=== PATIENT | male | born 1980 | race Two or more races ===

== ENCOUNTER 2018-03-04 11:05 | Emergency (ER) | payer SELFPAY ==
[2018-03-04 11:50] LABS: ADD MAN DIFF? NO
[2018-03-04 11:51] LABS: BASO # 0.1 x10^3/uL (0.0-0.2); BASO % 2 % (0-3); EOS # 0.4 x10^3/uL (0.0-0.7); EOS % 6 % (0-3); HEMATOCRIT 46.6 % (39.0-53.0); HEMOGLOBIN 16.4 g/dL (13.0-17.5); LYMPH # 2.8 x10^3/uL (1.0-4.8); LYMPH % 51 % (24-48); MEAN CORPUSCULAR HEMOGLOBIN 34 pg (25-35); MEAN CORPUSCULAR HGB CONC 35 g/dL (31-37); MEAN CORPUSCULAR VOLUME 96 fL (79-100); MONO # 0.5 x10^3/uL (0.0-1.1); MONO % 8 % (0-9); NEUT # 1.8 x10^3uL (1.8-7.7); NEUT % 32 % (31-73); PLATELET COUNT 190 x10^3/uL (140-400); RED BLOOD COUNT 4.86 x10^6/uL (4.30-5.70); RED CELL DISTRIBUTION WIDTH 13.1 % (11.5-14.5); WHITE BLOOD COUNT 5.5 x10^3/uL (4.0-11.0)
[2018-03-04] MEDS: ASPIRIN CHEWABLE 81 MG TABLET. PO (11:56)
[2018-03-04 12:00] LABS: INR 1.1 (0.8-1.1); PROTHROMBIN TIME PATIENT 13.8 SEC (11.7-14.0)
[2018-03-04 12:02] LABS: ANION GAP 14 (6-14); BLOOD UREA NITROGEN 5 mg/dL (8-26); BUN/CREATININE RATIO 8 (6-20); CALCIUM 8.7 mg/dL (8.5-10.1); CARBON DIOXIDE 25 mmol/L (21-32); CHLORIDE 102 mmol/L (98-107); CREATININE 0.6 mg/dL (0.7-1.3); GFR 152.4; GLUCOSE 101 mg/dL (70-99); POTASSIUM 4.1 mmol/L (3.5-5.1); SODIUM 141 mmol/L (136-145)
[2018-03-04 12:08] LABS: ALK PHOS 68 U/L (46-116); ALT (SGPT) 36 U/L (16-63); AST (SGOT) 33 U/L (15-37); CREATINE KINASE 266 U/L (39-308); D-DIMER 0.36 ug/mlFEU (0.00-0.50); LIPASE 166 U/L (73-393); TOTAL BILIRUBIN 0.8 mg/dL (0.2-1.0); TOTAL PROTEIN 7.9 g/dL (6.4-8.2)
[2018-03-04 12:09] LABS: TROPONINI < 0.017 ng/mL (0.000-0.055)
[2018-03-04 12:17] LABS: NT-PRO BNP 11 pg/mL (0-124)
[2018-03-04 12:17] LABS: CKMB INDEX 0.6 % (0-4); CKMB MASS 1.7 ng/mL (0.0-3.6); CREATINE KINASE 271 U/L (39-308)
== END 2018-03-04 13:00 | disposition home or self-care (01) ==
LOC: ER 11:05
DX: F41.9 Anxiety disorder, unspecified (principal); F10.20 Alcohol dependence, uncomplicated
CPT/HCPCS: 36415; 71045; 80053; 82550; 82553; 83690; 83735; 83880; 84484; 85025; 85379; 85610; 93005; 96374; 99285-25; J2060

== ENCOUNTER 2019-05-22 13:37 | Emergency (ER) | payer SELFPAY ==
[~2019-05-22] VITALS: Ht 182.9 cm; Wt 108.9 kg
[~2019-05-22 13:37] MED LIST: NAPR-683 PO
[2019-05-22] MEDS ORDERED: METOCLOPRAMIDE HCL 10 MG/2 ML VIAL. IV ONE (14:00)
[2019-05-22] MEDS ORDERED: IV NORMAL SALINE 1000ML BAG 1,000 ML IV ONE ×2 (14:00→16:30)
--- NOTE | 2019-05-22 14:00 | PHYS DOC ---
Past Medical History Past Medical History: No Pertinent History Past Surgical History: Other Additional Past Surgical Histo: right index finger Alcohol Use: Heavy Drug Use: None Adult General Chief Complaint Chief Complaint: CHEST PAIN HPI HPI Patient is a 38 year old male presented to ER today for evaluation of epigastric this abdominal pain, chest pain started for several day. he said he is in alcohol withdrawal. He said he had been drinking heavily for the last 5 days, his last drink was last night. he denies any suicidal ideation, denies homicidal ideation. he had no previous medical problem, he had no history of heart problem. He is currently not taking any medication. Review of Systems Review of Systems Constitutional: Denies fever or chills [] Eyes: Denies change in visual acuity, redness, or eye pain [] HENT: Denies nasal congestion or sore throat [] Respiratory: Denies cough or shortness of breath [] Cardiovascular: No additional information not addressed in HPI [] GI: Positive for epigastric abdominal pain, NO nausea, vomiting, bloody stools or diarrhea [] : Denies dysuria or hematuria [] Musculoskeletal: Denies back pain or joint pain [] Integument: Denies rash or skin lesions [] Neurologic: Denies headache, focal weakness or sensory changes [] Endocrine: Denies polyuria or polydipsia [] All other systems were reviewed and found to be within normal limits, except as documented in this note. Current Medications Current Medications Current Medications Medications (Trade) Dose Ordered Sig/Gladis Start Time Stop Time Status Last Admin Dose Admin Chlordiazepoxide (Librium) 25 mg 1X ONCE 05/22/19 15:30 05/22/19 15:31 DC 05/22/19 15:32 25 MG Famotidine (Pepcid Vial) 20 mg 1X ONCE 05/22/19 16:00 05/22/19 16:01 DC 05/22/19 16:09 20 MG Lorazepam (Ativan Inj) 1 mg 1X ONCE 05/22/19 14:00 05/22/19 14:01 DC 05/22/19 14:09 1 MG Magnesium Sulfate 50 ml @ 25 mls/hr 1X ONCE 05/22/19 15:30 05/22/19 17:29 05/22/19 15:32 25 MLS/HR Metoclopramide HCl (Reglan Vial) 10 mg 1X ONCE 05/22/19 14:00 8/3/19 14:01 DC 05/22/19 14:10 10 MG Multi-Ingredient Mouthwash/Gargle (Gi Cocktail) 20 ml 1X ONCE 05/22/19 16:00 05/22/19 16:01 DC 05/22/19 16:09 20 ML Sodium Chloride 1,000 ml @ 1,000 mls/hr 1X ONCE 05/22/19 16:30 05/22/19 17:29 Allergies Allergies Allergies Coded Allergies Type Severity Reaction Last Updated Verified No Known Drug Allergies 03/04/18 No Physical Exam Physical Exam Constitutional: Well developed, well nourished, no acute distress, non-toxic appearance. [] HENT: Normocephalic, atraumatic, bilateral external ears normal, oropharynx moist, no oral exudates, nose normal. [] Eyes: PERRLA, EOMI, conjunctiva normal, no discharge. [] Neck: Normal range of motion, no tenderness, supple, no stridor. [] Cardiovascular:Heart rate regular rhythm, no murmur [] Lungs & Thorax: Bilateral breath sounds clear to auscultation [] Abdomen: Bowel sounds normal, soft, no tenderness, no masses, no pulsatile masses. [] Skin: Warm, dry, no erythema, no rash. [] Back: No tenderness, no CVA tenderness. [] Extremities: No tenderness, no cyanosis, no clubbing, ROM intact, no edema. [] Neurologic: Alert and oriented X 3, normal motor function, normal sensory function, no focal deficits noted. [] Psychologic: Affect normal, judgement normal, mood normal. [] Current Patient Data Vital Signs Vital Signs Date Time Temp Pulse Resp B/P (MAP) Pulse Ox O2 Delivery O2 Flow Rate FiO2 05/22/19 15:28 96 18 147/89 (108) 96 Room Air 05/22/19 13:40 99.0 99.0 Lab Values Laboratory Tests Test 05/22/19 13:52 05/22/19 16:11 White Blood Count 4.8 x10^3/uL (4.0-11.0) Red Blood Count 4.95 x10^6/uL (4.30-5.70) Hemoglobin 15.9 g/dL (13.0-17.5) Hematocrit 44.8 % (39.0-53.0) Mean Corpuscular Volume 91 fL (79-100) Mean Corpuscular Hemoglobin 32 pg (25-35) Mean Corpuscular Hemoglobin Concent 36 g/dL (31-37) Red Cell Distribution Width 13.9 % (11.5-14.5) Platelet Count 267 x10^3/uL (140-400) Neutrophils (%) (Auto) 74 % (31-73) H Lymphocytes (%) (Auto) 15 % (24-48) L Monocytes (%) (Auto) 10 % (0-9) H Eosinophils (%) (Auto) 0 % (0-3) Basophils (%) (Auto) 1 % (0-3) Neutrophils # (Auto) 3.6 x10^3/uL (1.8-7.7) Lymphocytes # (Auto) 0.7 x10^3/uL (1.0-4.8) L Monocytes # (Auto) 0.5 x10^3/uL (0.0-1.1) Eosinophils # (Auto) 0.0 x10^3/uL (0.0-0.7) Basophils # (Auto) 0.0 x10^3/uL (0.0-0.2) Prothrombin Time 13.2 SEC (11.7-14.0) Prothrombin Time INR 1.0 (0.8-1.1) Sodium Level 134 mmol/L (136-145) L Potassium Level 4.0 mmol/L (3.5-5.1) Chloride Level 95 mmol/L (98-107) L Carbon Dioxide Level 21 mmol/L (21-32) Anion Gap 18 (6-14) H Blood Urea Nitrogen 5 mg/dL (8-26) L Creatinine 0.9 mg/dL (0.7-1.3) Estimated GFR (Cockcroft-Gault) 95.0 Glucose Level 180 mg/dL (70-99) H Calcium Level 9.1 mg/dL (8.5-10.1) Magnesium Level 1.5 mg/dL (1.8-2.4) L Creatine Kinase 272 U/L (39-308) Troponin I Quantitative < 0.017 ng/mL (0.000-0.055) RS-Ibn-V-Type Natriuretic Peptide 8 pg/mL (0-124) Lipase 167 U/L (73-393) Salicylates Level < 2.8 mg/dL (2.8-20.0) L Salicylate Last Dose Date Unknown Salicylate Last Dose Time Unknown Acetaminophen Level < 2 mcg/ml (10-30) L Acetaminophen Last Dose Date Unknown Acetaminophen Last Dose Time Unknown Ethyl Alcohol Level 19 mg/dL (0-10) H Urine Collection Type Unknown Urine Color Yellow Urine Clarity Clear Urine pH 7.5 Urine Specific [place] 1.010 Urine Protein Negative mg/dL (NEG-TRACE) Urine Glucose (UA) Negative mg/dL (NEG) Urine Ketones (Stick) 40 mg/dL (NEG) Urine Blood Trace (NEG) Urine Nitrite Negative (NEG) Urine Bilirubin Negative (NEG) Urine Urobilinogen Dipstick 1.0 mg/dL (0.2 mg/dL) Urine Leukocyte Esterase Negative (NEG) Urine RBC 3-5 /HPF (0-2) Urine WBC 0 /HPF (0-4) Urine Squamous Epithelial Cells Few /LPF Urine Bacteria 0 /HPF (0-FEW) Urine Hyaline Casts Moderate /HPF Urine Mucus Slight /LPF Urine Opiates Screen Neg (NEG) Urine Methadone Screen Neg (NEG) Urine Barbiturates Neg (NEG) Urine Phencyclidine Screen Neg (NEG) Urine Amphetamine/Methamphetamine Neg (NEG) Urine Benzodiazepines Screen Neg (NEG) Urine Cocaine Screen Neg (NEG) Urine Cannabinoids Screen Neg (NEG) Urine Ethyl Alcohol Pos (NEG) Laboratory Tests 05/22/19 13:52 Laboratory Tests 05/22/19 13:52 EKG EKG EKG WAS DONE AT 1346, RATE OF 100 BPM, NO STEMI. Radiology/Procedures Radiology/Procedures [][facility] [address] [place] [address] IMAGING REPORT Signed PATIENT: MIKE HARTMAN ACCOUNT: [id number] : 1980 LOCATION: ER AGE: 38 SEX: M EXAM STATUS: PRE ER ORD. PHYSICIAN: MAXIM ESPAÑA DO REASON: chest pain, SOA x1 day PROCEDURE: PORTABLE CHEST 1V Chest radiograph 05/22/2019 1:45 PM INDICATION: Chest pain, shortness of breath COMPARISON: March 04, 2018 TECHNIQUE: Frontal view of the chest is provided. FINDINGS: The cardiomediastinal silhouette is within normal limits. There are no pleural effusions. There is no pulmonary vascular congestion. There is no pneumothorax. The lungs are clear. No significant osseous abnormality is identified. IMPRESSION: No acute cardiopulmonary process. Electronically signed by: Shabbir Canela MD (05/22/2019 2:21 PM) [facility] DICTATED and SIGNED BY: SHABBIR CANELA MD DATE: 05/22/19 142 Course & Med Decision Making Course & Med Decision Making Pertinent Labs and Imaging studies reviewed. (See chart for details) [] Dragon Disclaimer Dragon Disclaimer This electronic medical record was generated, in whole or in part, using a voice recognition dictation system. Departure Departure Impression: Primary Impression: Acute gastritis Additional Impression: Alcohol abuse Disposition: HOME, SELF-CARE Condition: IMPROVED Referrals: NO PCP (PCP) FOLLOW UP WITH YOUR FAMILY DOCTOR FOR REEVALUATION ON FRIDAY Patient Instructions: Alcohol Problems, Gastritis, Adult Scripts Chlordiazepoxide Hcl (CHLORDIAZEPOXIDE HCL) 25 Mg Capsule 25 MG PO QID PRN for ANXIETY / AGITATION for 7 Days, #30 CAP Prov: MAXIM ESPAÑA DO 05/22/19 Famotidine (PEPCID) 20 Mg Tablet 20 MG PO BID for 30 Days, #60 TAB Prov: MAXIM ESPAÑA DO 05/22/19 Sucralfate (CARAFATE) 1 Gm Tablet 1 TAB PO QID for 14 Days, #56 TAB 1 Refill Prov: MAXIM ESPAÑA DO 05/22/19 Problem Qualifiers MAXIM ESPAÑA DO May 22, 2019 14:00
[2019-05-22 14:10] LABS: BASO % 1 % (0-3); EOS % 0 % (0-3); HEMATOCRIT 44.8 % (39.0-53.0); HEMOGLOBIN 15.9 g/dL (13.0-17.5); LYMPH # 0.7 x10^3/uL (1.0-4.8); LYMPH % 15 % (24-48); MEAN CORPUSCULAR HEMOGLOBIN 32 pg (25-35); MEAN CORPUSCULAR HGB CONC 36 g/dL (31-37); MEAN CORPUSCULAR VOLUME 91 fL (79-100); MONO # 0.5 x10^3/uL (0.0-1.1); MONO % 10 % (0-9); NEUT # 3.6 x10^3/uL (1.8-7.7); NEUT % 74 % (31-73); PLATELET COUNT 267 x10^3/uL (140-400); RED BLOOD COUNT 4.95 x10^6/uL (4.30-5.70); RED CELL DISTRIBUTION WIDTH 13.9 % (11.5-14.5); WHITE BLOOD COUNT 4.8 x10^3/uL (4.0-11.0)
[2019-05-22 14:19] LABS: PROTHROMBIN TIME PATIENT 13.2 SEC (11.7-14.0)
--- NOTE | 2019-05-22 14:24 | RAD ---
Chest radiograph 05/22/2019 1:45 PM INDICATION: Chest pain, shortness of breath COMPARISON: March 04, 2018 TECHNIQUE: Frontal view of the chest is provided. FINDINGS: The cardiomediastinal silhouette is within normal limits. There are no pleural effusions. There is no pulmonary vascular congestion. There is no pneumothorax. The lungs are clear. No significant osseous abnormality is identified. IMPRESSION: No acute cardiopulmonary process. Electronically signed by: Lilibeth Garland MD (05/22/2019 2:21 PM) [facility]
[2019-05-22 14:27] LABS: CALCIUM 9.1 mg/dL (8.5-10.1); CREATININE 0.9 mg/dL (0.7-1.3)
[2019-05-22 14:30] LABS: ACETAMIN < 2 mcg/ml (10-30); SALIC < 2.8 mg/dL (2.8-20.0)
[2019-05-22 14:32] LABS: MAGNESIUM 1.5 mg/dL (1.8-2.4)
[2019-05-22] MEDS ORDERED: MAGNESIUM SULFATE 2GM 50 ML IV ONE (15:30)
[2019-05-22] MEDS ORDERED: chlordiazePOXIDE HCL 25 MG CAPSULE PO ONE (15:30)
[2019-05-22] MEDS ORDERED: LIDO:MAALOX 1:1 20 ML SINGLE DOSE. SWSW ONE (16:00)
[2019-05-22] MEDS ORDERED: FAMOTIDINE 20 MG/2 ML VIAL IVP ONE (16:00)
[2019-05-22 16:19] LABS: BILIRUBIN,URINE NEGATIVE (NEG); CLARITY,URINE CLEAR; COLOR,URINE YELLOW; NITRITE,URINE NEGATIVE (NEG); PH,URINE 7.5; PROTEIN,URINE NEGATIVE (NEG-TRACE)
[2019-05-22 16:25] LABS: HYALINE CASTS, URINE MODERATE /HPF; SQUAMOUS EPITHELIAL CELL,UR FEW /LPF
[2019-05-22 16:26] LABS: AMPHETAMINE/METHAMPHETAMINE NEG (NEG); BACTERIA,URINE 0 /HPF (0-FEW); BARBITURATES NEG (NEG); BENZODIAZEPINES NEG (NEG); CANNABINOIDS NEG (NEG); COCAINE NEG (NEG); METHADONE NEG (NEG); OPIATES NEG (NEG); PHENCYCLIDINE NEG (NEG); WBC,URINE 0 /HPF (0-4)
[2019-05-22] MEDS ORDERED: FAMO-63 PO (17:07)
[2019-05-22] MEDS ORDERED: SUCR1TAB35 PO (17:07)
[2019-05-22] MEDS ORDERED: CHLO25CA9 PO (17:07)
[2019-05-22 17:38] VITALS: BP 160/81
--- NOTE | 2019-05-24 06:38 | EKG ---
[facility] [address] [place] [address] Test Date: 2019-05-22 Test Time: 13:46:21 Pat Name: MIKE HARTMAN Department: Room: Gender: M Chief Architect: : 1980 Requested By: MAXMI ESPAÑA Order Number: [id number] Reading MD: Measurements Intervals Nesbit Rate: 100 P: 155 SC: 150 QRS: -170 QRSD: 88 T: 130 QT: 348 QTc: 451 Interpretive Statements SINUS RHYTHM * POSSIBLE REVERSAL OF THE ARM LEADS ABNORMAL RIGHT SUPERIOR AXIS DEVIATION QRS(T) CONTOUR ABNORMALITY CONSISTENT WITH HIGH LATERAL INFARCT AGE UNDETERMINED ABNORMAL ECG No previous ECG available for comparison
== END 2019-05-22 17:39 | disposition home or self-care (01) ==
LOC: ER 13:37
DX: K29.00 Acute gastritis without bleeding (principal); F10.20 Alcohol dependence, uncomplicated; Y90.0 Blood alcohol level of less than 20 mg/100 ml; R07.89 Other chest pain; R06.02 Shortness of breath; R94.31 Abnormal electrocardiogram [ECG] [EKG]
CPT/HCPCS: 36415; 71045; 80048; 80307; 80329; 81001; 82550; 83690; 83735; 83880; 84484; 85025; 85610; 93005; 96361; 96365; 96366; 96375; 99285; G0480; J2060; J2765; J3475; J3490; J7030

== ENCOUNTER 2020-10-19 10:51 | Emergency (ER) | payer SELFPAY ==
[~2020-10-19] VITALS: Ht 182.9 cm; Wt 120.0 kg
[~2020-10-19 10:51] MED LIST changes: +CHLO25CA9 PO; +FAMO-63 PO; +SUCR1TAB35 PO
[2020-10-19] MEDS ORDERED: DEXAMETHASONE 4 MG TABLET PO ONE (11:15)
[2020-10-19] MEDS ORDERED: MORPHINE SULFATE 10 MG/ML VIAL. IM ONE (11:15)
[2020-10-19 11:37] LABS: BILIRUBIN,URINE NEGATIVE (NEG); CLARITY,URINE CLEAR; COLOR,URINE YELLOW; NITRITE,URINE NEGATIVE (NEG); PROTEIN,URINE 30 mg/dL (NEG-TRACE)
--- NOTE | 2020-10-19 11:46 | PHYS DOC ---
Past Medical History Past Medical History: No Pertinent History Past Surgical History: Other Additional Past Surgical Histo: right index finger Smoking Status: Never Smoker Alcohol Use: Heavy Drug Use: None General Adult EDM: Chief Complaint: BACK PAIN OR INJURY HPI: HPI: Patient is a 39 year old male who presents with for the last week patient has had low back pain that has gotten progressively worse he states is starting to go up to his mid back. He states is worse with movement. He states when he gets up and walks around it feels better. He states he does not remember injuring his back. He states he went to the doctor and they placed him on Flexeril, Tylenol and ibuprofen. He states that the pain does get worse from sitting to standing. He denies any radiation of pain. He states it feels like a big " knot or fist in his back." He rates his pain a 9 out of 10. Denies any past medical history. Review of Systems: Review of Systems: Constitutional: Denies fever or chills. [] Eyes: Denies change in visual acuity. [] HENT: Denies nasal congestion or sore throat. [] Respiratory: Denies cough or shortness of breath. [] Cardiovascular: Denies chest pain or edema. [] GI: Denies abdominal pain, nausea, vomiting, bloody stools or diarrhea. [] : Denies dysuria. [] Musculoskeletal: + back pain or denies joint pain. [] Integument: Denies rash. [] Neurologic: Denies headache, focal weakness or sensory changes. [] Endocrine: Denies polyuria or polydipsia. [] Lymphatic: Denies swollen glands. [] Psychiatric: Denies depression or anxiety. [] Heart Score: Risk Factors: Risk Factors: DM, Current or recent (<one month) smoker, HTN, HLP, family history of CAD, obesity. Risk Scores: Score 0 - 3: 2.5% MACE over next 6 weeks - Discharge Home Score 4 - 6: 20.3% MACE over next 6 weeks - Admit for Clinical Observation Score 7 - 10: 72.7% MACE over next 6 weeks - Early Invasive Strategies Current Medications: Current Medications Medications (Trade) Dose Ordered Sig/Gladis Start Time Stop Time Status Last Admin Dose Admin Dexamethasone (Decadron) 10 mg 1X ONCE 10/19/20 11:15 10/19/20 11:18 DC 12/31/20 11:27 10 MG Morphine Sulfate (Morphine Sulfate) 5 mg 1X ONCE 10/19/20 11:15 10/19/20 11:18 DC 10/19/20 11:29 5 MG Allergies: Allergies: Allergies Coded Allergies Type Severity Reaction Last Updated Verified No Known Drug Allergies 03/04/18 No Physical Exam: PE: Constitutional: Well developed, well nourished, no acute distress, non-toxic appearance. [] HENT: Normocephalic, atraumatic, bilateral external ears normal, oropharynx moist, no oral exudates, nose normal. [] Eyes: PERRLA, EOMI, conjunctiva normal, no discharge. [] Neck: Normal range of motion, no tenderness, supple, no stridor. [] Cardiovascular:Heart rate regular rhythm, no murmur [] Lungs & Thorax: Bilateral breath sounds clear to auscultation [] Abdomen: Bowel sounds normal, soft, no tenderness, no masses, no pulsatile masses. [] Skin: Warm, dry, no erythema, no rash. [] Back: Mid back paraspinal tenderness, no CVA tenderness. [] Extremities: No tenderness, no cyanosis, no clubbing, ROM intact, no edema. [] Neurologic: Alert and oriented X 3, normal motor function, normal sensory function, no focal deficits noted. [] Psychologic: Affect normal, judgement normal, mood normal. [] Current Patient Data: Vital Signs: Vital Signs Date Time Temp Pulse Resp B/P (MAP) Pulse Ox O2 Delivery O2 Flow Rate FiO2 10/19/20 11:29 18 99 Room Air 10/19/20 11:15 97.9 68 163/112 (129) 97.9 EKG: EKG: [] Radiology/Procedures: Radiology/Procedures: [] Impression: [facility] [address] [place] [address] IMAGING REPORT Signed PATIENT: MIKE HARTMAN ACCOUNT: [id number] : 05/27/1981 LOCATION: ER AGE: 39 SEX: M EXAM STATUS: REG ER ORD. PHYSICIAN: JANI LONGO APRN REASON: BACK PAIN PROCEDURE: CT LUMBAR SPINE WO CONTRAST CT LUMBAR SPINE WO History:Reason: BACK PAIN / Spl. Instructions: / History: Technique: Noncontrast CT was performed of the lumbar spine. Multiplanar reconstructions were performed. Exposure: One or more of the following individualized dose reduction techniques were utilized for this examination: 1. Automated exposure control 2. Adjustment of the mA and/or kV according to patient size 3. Use of iterative reconstruction technique. Comparison: None Findings: Normal vertebral body height and alignment. No fracture. T12-L1: No canal or neuroforaminal narrowing. L1-L2: Minimal disc bulge. No canal or neuroforaminal narrowing. L2-L3: Small disc bulge. Mild subarticular recess narrowing. No canal narrowing. Mild facet arthropathy. No neuroforaminal narrowing. L3-L4: Small disc bulge. Some particular recess narrowing. No canal narrowing. Ligament of flavum thickening. Mild facet arthropathy. No neuroforaminal narrowing. L4-L5: Broad-based disc bulge. Moderate facet arthropathy. Ligament of flavum thickening. Subarticular recess narrowing. No canal narrowing. Mild left neuroforaminal narrowing. No right neuroforaminal narrowing. L5-S1: Disc bulge. Moderate facet arthropathy. No canal narrowing. No neuroforaminal narrowing. Symmetric bilateral sacroiliac irregularity with and erosions. Mild atheromatous plaque within the nonaneurysmal abdominal aorta, advanced for age. Impression: 1. No acute fracture or subluxation of the lumbar spine. 2. Symmetric bilateral sacroiliac irregularity with erosions and sclerosis, may represent sacroiliitis. Recommend further clinical evaluation and if indicated MRI can better evaluate. 3. Multilevel lumbar spondylosis, as described. 4. Mild atheromatous plaque within the abdominal aorta, advanced for age. Electronically signed by: Josef Lakhani DO (10/19/2020 12:13 PM) [id number] DICTATED and SIGNED BY: JOSEF LAKHANI DO DATE: 10/19/20 [id number] Course & Med Decision Making: Course & Med Decision Making Pertinent Labs and Imaging studies reviewed. (See chart for details) See HPI. Denies any radiation to his abdomen abdomen is soft and nontender. Denies nausea, vomiting, diarrhea, urinary symptoms, fever, dizziness, headache, chest pain, shortness of breath, cough, injury, fall, focal weakness, numbness or tingling, loss of bowel bladder. He is ambulatory with a steady gait. Speaks in full sentences. Alert and oriented x4. Skin pink warm and dry. Vital signs within normal limits. Patient is given morphine IM and dexamethasone in the ED. Called and spoke to Kathy FORMAN for Dr. Kilgore but Dr. Kilgore is not on-call. I then called Dr. Mcgee he states that sacroiliitis is more evident Orthopedic problem. I have no page Dr. Croft. 1335: Dr. Croft states that this is out of his scope of practice. I am now calling Dr. Ramirze. 1419: I spoke to Dr. Ramirez and he states to give the patient Augmentin and a Medrol Dosepak and he can follow-up with primary care for a follow-up MRI. I have also spoken with Dr. Gutiérrez concerning this patient and the care plan. [] Tonia Disclaimer: Tonia Disclaimer: This electronic medical record was generated, in whole or in part, using a voice recognition dictation system. Departure Departure Impression: Primary Impression: Sacroiliac inflammation Disposition: 01 DC HOME SELF CARE/HOMELESS Condition: STABLE Referrals: NO PCP (PCP) Patient Instructions: Sacroiliac Joint Dysfunction Additional Instructions: Follow-up with your primary care physician as soon as possible. Take medications as prescribed and with food. Try using a heating pad or ice also. Scripts Amoxicillin/Potassium Clav (AUGMENTIN 875-125 TABLET) 1 Each Tablet 1 TAB PO BID for 10 Days, #20 TAB 0 Refills Prov: JANI LONGO APRN 10/19/20 Methylprednisolone (MEDROL) 4 Mg Tab.ds.pk 1 PKG PO UD, #1 PKG Prov: JANI LONGO [employer]ESS [employer] SUPERVISOR 10/19/20 Hydrocodone/Apap 5-325 (NORCO 5-325 TABLET) 1 Each Tablet 1 TAB PO PRN Q6HRS PRN for PAIN, #12 TAB 0 Refills Prov: JANI LONGO [employer] SUPERVISOR 10/19/20 JANI LONGO APRN Oct 19, 2020 11:46
[2020-10-19 11:51] LABS: RBC,URINE RARE /HPF (0-2)
[2020-10-19 11:52] LABS: BACTERIA,URINE 0 /HPF (0-FEW); SPERM,URINE PRESENT /HPF
[2020-10-19 11:53] LABS: GRANULAR CASTS,URINE OCCASIONAL /HPF; HYALINE CASTS, URINE FEW /HPF
--- NOTE | 2020-10-19 12:16 | RAD ---
CT LUMBAR SPINE WO History:Reason: BACK PAIN / Spl. Instructions: / History: Technique: Noncontrast CT was performed of the lumbar spine. Multiplanar reconstructions were perform ed. Exposure: One or more of the following individualized dose reduction techniques were utilized for thi s examination: 1. Automated exposure control 2. Adjustment of the mA and/or kV according to patient size 3. Use of iterative reconstruction technique. Comparison: None Findings: Normal vertebral body height and alignment. No fracture. T12-L1: No canal or neuroforaminal narrowing. L1-L2: Minimal disc bulge. No canal or neuroforaminal narrowing. L2-L3: Small disc bulge. Mild subarticular recess narrowing. No canal narrowing. Mild facet arthropa thy. No neuroforaminal narrowing. L3-L4: Small disc bulge. Some particular recess narrowing. No canal narrowing. Ligament of flavum th ickening. Mild facet arthropathy. No neuroforaminal narrowing. L4-L5: Broad-based disc bulge. Moderate facet arthropathy. Ligament of flavum thickening. Subarticul ar recess narrowing. No canal narrowing. Mild left neuroforaminal narrowing. No right neuroforaminal narrowing. L5-S1: Disc bulge. Moderate facet arthropathy. No canal narrowing. No neuroforaminal narrowing. Symmetric bilateral sacroiliac irregularity with and erosions. Mild atheromatous plaque within the nonaneurysmal abdominal aorta, advanced for age. Impression: 1. No acute fracture or subluxation of the lumbar spine. 2. Symmetric bilateral sacroiliac irregularity with erosions and sclerosis, may represent sacroiliit is. Recommend further clinical evaluation and if indicated MRI can better evaluate. 3. Multilevel lumbar spondylosis, as described. 4. Mild atheromatous plaque within the abdominal aorta, advanced for age. Electronically signed by: Josef Lakhani DO (10/19/2020 12:13 PM) [id number]
[2020-10-19] MEDS ORDERED: ONDANSETRON ODT 4 MG TAB.RAPDIS. ONE (13:59)
[2020-10-19] MEDS ORDERED: ONDANSETRON ODT 4 MG TAB.RAPDIS. PO ONE (14:00)
[2020-10-19 14:01] VITALS: BP 171/98
[2020-10-19] MEDS ORDERED: HYDR-3164 PO (14:22)
[2020-10-19] MEDS ORDERED: METH4TAB2 PO (14:22)
[2020-10-19] MEDS ORDERED: AMOX1TAB61 PO (14:22)
== END 2020-10-19 14:40 | disposition home or self-care (01) ==
LOC: ER 10:51
DX: M46.1 Sacroiliitis, not elsewhere classified (principal); F10.10 Alcohol abuse, uncomplicated; Z98.890 Other specified postprocedural states
CPT/HCPCS: 72131; 81001; 96372; 99284; J2270